=== PATIENT | male | born 1990 | race Two or more races ===

== ENCOUNTER 2024-12-17 20:39 | Emergency (ER) | payer MEDICAID, OTHER ==
[~2024-12-17] VITALS: Ht 185.4 cm; Wt 109.1 kg
--- NOTE | 2024-12-17 21:03 | ED.PDOC ---
General HPI Comments 34-year-old male who came to ER for urinary issues. Patient has history of chronic kidney, prostate enlargement, UTI. Patient had an indwelling [place] catheter inserted 3 weeks ago, while patient is being treated for UTI. Catheter supposed to stay for a month, however about 30 minutes prior to arrival, patient felt that the catheter got dislodged, felt some twisting pain at the catheter insertion site. Patient is still presents with adequate urine flow at the catheter/[place] bag with no gross hematuria noted. Chief Complaint: Urinary Time Seen by MD: 21:02 Reviewed notes: Nurses Notes Allergies: Coded Allergies: Ciprofloxacin (Verified Allergy, Unknown, 12/17/24) Ibuprofen (Verified Allergy, Unknown, 12/17/24) Nitrofurantoin (Verified Allergy, Unknown, 12/17/24) Sulfa Antibiotics (Verified Allergy, Unknown, 12/17/24) Home Meds Active Scripts Phenazopyridine Hcl (Azo Tabs) 95 Mg Tab, 95 MG PO TID PRN, #10 TAB Prov:LUCRETIA MISTRY MD 12/17/24 Nitrofurantoin Monohydrate Mac (Macrobid) 100 Mg Cap, 100 MG PO BID for 10 Days, #20 CAP Prov:LUCRETIA MISTRY MD 12/17/24 Information Source: Patient, Emergency Med Personnel Mode of Arrival: EMS Severity: Moderate Inability to void: Mild Timing: Minutes Duration: Since onset Onset: Spontaneous History of: UTI, BPH Past Medical History PAST MEDICAL HISTORY: CKF, UTI'S Past Medical History (Other): bph, Crohn's disease Surgical History: Denies all surgeries Family History Family History: Reviewed,noncontributory to illness Social History Smoker: Non-Smoker Alcohol: Denies ETOH Use Drugs: Denies Drug Use Lives In: Home Constitutional: denies: chills, diaphoresis, fatigue, fever, malaise, sweats, weakness, others EENTM: denies: blurred vision, double vision, ear bleeding, ear discharge, ear drainage, ear pain, ear ringing, eye pain, eye redness, hearing loss, mouth pain, mouth swelling, nasal discharge, nose bleeding, nose congestion, nose pain, photophobia, tearing, throat pain, throat swelling, voice changes, others Respiratory: denies: cough, hemoptysis, orthopnea, SOB at rest, shortness of breath, SOB with excertion, stridor, wheezing, others Cardiovascular: denies: chest pain, dizzy spells, diaphoresis, Dyspnea on exertion, edema, irregular heart beat, left arm pain, lightheadedness, palpitations, PND, syncope, others Gastrointestinal: denies: abdomen distended, abdominal pain, blood streaked bowels, constipated, diarrhea, dysphagia, difficulty swallowing, hematemesis, melena, nausea, poor appetite, poor fluid intake, rectal bleeding, rectal pain, vomiting, others Genitourinary: reports: pain, others (Dislodged [place] catheter); denies: burning, dysuria, flank pain, frequency, hematuria, incontinence, penile discharge, penile sore, testicle pain, testicle swelling, urgency Neurological: denies: dizziness, fainting, headache, left sided numbness, left sided weakness, numbness, paresthesia, pre-existing deficit, right sided numbness, right sided weakness, seizure, speech problems, tingling, tremors, weakness, others Musculoskeletal: denies: back pain, gout, joint pain, joint swelling, muscle pain, muscle stiffness, neck pain, others Integumetry: denies: bruises, change in color, change in hair/nails, dryness, laceration, lesions, lumps, rash, wounds, others Allergic/Immunocompromised: denies: Difficulty Healing, Frequent Infections, Hives, Itching, others Hematologic/Lymphatic: denies: anemia, blood clots, easy bleeding, easy bruising, swollen glands, others Endocrine: denies: excessive hunger, excessive sweating, excessive thirst, excessive urination, flushing, intolerance to cold, intolerance to heat, unexplained weight gain, unexplained weight loss, others Psychiatric: denies: anxiety, bipolar disorder, depression, hopeless, panic disorder, schizophrenia, sleepless, suicidal, others Physical Exam General Appearance: No Apparent Distress, Normal HEENT: Normal ENT Inspection, Pharynx Normal, TMs Normal Neck: Full Range of Motion, Non-Tender, Normal, Normal Inspection Respiratory: Chest Non-Tender, Lungs Clear, No Accessory Muscle Use, No Respiratory Distress, Normal Breath Sounds Cardiovascular: No Edema, No JVD, No Murmur, No Gallop, Normal Peripheral Pulses, Regular Rate/Rhythm Breast Exam: Deferred Gastrointestinal: No Organomegaly, Non Tender, No Pulsatile Mass, Normal Bowel Sounds, Soft Genitalia: Deferred Pelvic: Deferred Rectal: Deferred Extremities: No calf tenderness, Normal capillary refill, Normal inspection, Normal range of motion, Non-tender, No pedal edema Musculoskeletal : Apperance: Normal Neurologic: Alert, construction specialist II-XII nml as Tested, No Motor Deficits, Normal Affect, Normal Mood, No Sensory Deficits Cerebellar Function: Normal Reflexes: Normal Skin: Dry, Normal Color, Warm Lymphatic: No Adenopathy Was a procedure done? Was a procedure done?: No Differential Diagnosis Kidney stone (Female): N/A Kidney stone (Male): Strain, Urinary obstruction, Urolithiasis, Renal infarction, Urinary tract infection Urinary Problem (Male): Bladder Outlet, Bladder Obstruction, Epididymitis, Prostatitis X-Ray, Labs, Meds, VS Vital Signs Date Time Temp Pulse Resp B/P (MAP) Pulse Ox O2 Delivery O2 Flow Rate FiO2 12/17/24 22:50 98.8 85 20 121/84 (96) 99 98.8 12/17/24 20:48 98.6 99 16 147/82 (103) 100 98.6 Lab Test 12/17/24 22:17 Range/Units Urine Color Light-yellow Yellow Urine Clarity Turbid H Clear Urine pH 6.0 5.0-9.0 Urine Specific [place] 1.025 1.001-1.035 Urine Protein 1+ H Negative Urine Ketones Negative Negative Urine Blood 2+ H Negative /uL Urine Nitrite 2+ H Negative Urine Bilirubin Negative Negative Urine Urobilinogen Normal Negative mg/dL Urine Leukocyte Esterase 3+ Negative /uL Urine RBC 72 0 - 3 /hpf Urine Microscopic WBC 194 H 0-3 /HPF Urine Squamous Epithelial Cells Few <5 /hpf Urine Bacteria Mod H None Seen /hpf Urine Mucus Few None Seen Urine Glucose Normal Normal mg/dL Current Medications Medications (Trade) Dose Ordered Sig/Carmelita Route Start Time Stop Time Status Last Admin Nitrofurantoin Macrocrystals (Macrobid) 100 mg ONCE ONCE PO 12/17/24 23:00 12/17/24 23:01 DC 12/17/24 23:20 Phenazopyridine HCl (Pyridium Tablet) 200 mg ONCE ONCE PO 12/17/24 23:00 12/17/24 23:01 DC 12/17/24 23:20 Time of 1ST Reevaluation: 20:52 Reevaluation 1ST: Unchanged Patient Education/Counseling: Diagnosis, Treatment Family Education/Counseling: No Family Present Departure 1 Departure Time of Disposition: 22:00 Impression: Primary Impression: Catheter-associated urinary tract infection Disposition: HOME / SELF CARE / HOMELESS Condition: Stable e-Prescriptions Phenazopyridine Hcl (Azo Tabs) 95 Mg Tab 95 MG PO TID PRN, #10 TAB Prov: LUCRETIA MISTRY MD 12/17/24 Nitrofurantoin Monohydrate Mac (Macrobid) 100 Mg Cap 100 MG PO BID for 10 Days, #20 CAP Prov: LUCRETIA MISTRY MD 12/17/24 Discharged With: Self Critical Care Note Critical Care Time?: No Stability Stability form required: No Heart Score Heart Score: Heart Score Response (Comments) Value History N/A 0 EKG N/A 0 Age N/A 0 Risk Factors N/A 0 Troponin N/A 0 Total 0 I personally scribed for LUCRETIA MISTRY MD ([email or web address]) on 12/17/24 at 21:03. Electronically submitted by Robb Dickerson ([email or web address]). LUCRETIA MISTRY MD December 17, 2024 21:03
[2024-12-17 22:33] LABS: Urine Bacteria MOD /hpf (None Seen); Urine Blood 2+ /uL (Negative); Urine Clarity Turbid (Clear); Urine Color Light-Yellow (Yellow); Urine Mucus FEW (None Seen); Urine Protein, UAD 1+ (Negative); Urine Specific Gravity 1.025 (1.001-1.035); Urine Squamous Epithelial Cell FEW /hpf (<5); Urine Urobilinogen Normal (Negative); Urine WBC 194 /HPF (0-3)
[2024-12-17 22:50] VITALS: BP 121/84; PULSE 85; RESP 20; TEMP 98.8; O2SAT 99
[2024-12-17] MEDS ORDERED: NITR-87 PO (22:51)
[2024-12-17] MEDS ORDERED: PHEN95TA10 PO (22:53)
[2024-12-17] MEDS: PHENAZOPYRIDINE HCL 100 MG TAB PO ONE (23:20)
[2024-12-17] MEDS: NITROFURANTOIN 100 mg CAP PO ONE (23:20)
== END 2024-12-17 23:28 | disposition home or self-care (01) ==
LOC: EDBD 20:39 → ER 20:43
DX: T83.021A Displacement of indwelling urethral catheter, initial encounter (principal); N39.0 Urinary tract infection, site not specified; N18.9 Chronic kidney disease, unspecified; Z79.899 Other long term (current) drug therapy; Z98.890 Other specified postprocedural states; Z88.1 Allergy status to other antibiotic agents; Z88.2 Allergy status to sulfonamides; Z88.6 Allergy status to analgesic agent; Y92.89 Other specified places as the place of occurrence of the external cause
CPT/HCPCS: 51702; 81001